=== PATIENT | female | born 1970 | race Caucasian/White ===

== ENCOUNTER 2017-11-01 06:14 | Day surgery (SDC) | payer OTHER, SELFPAY ==
[2017-11-01 07:01] VITALS: BP 118/73; PULSE 60; RESP 16; TEMP 36.6; O2SAT 100; BMI 22.7
[2017-11-01] MEDS: Cefazolin 2 GM in 0.9% Normal Saline 100 ML IV (08:28)
--- NOTE | 2017-11-01 08:41 | PCM.DC.URO ---
Discharge Diet: Light diet - advance as tolerated Discharge Activity: May not drive while taking narcotic pain medications. Return to work on:: 11/11/17 May shower in (days): 1 May resume sexual activity in: 6 weeks Call your doctor if your incision/area has: Continuous Slow Oozing, Sudden Increased Bleeding, Increased Pain/ Swelling, Increased Redness, Foul Smelling Discharge, Swelling at the incision site Call your doctor if you observe: Fever of 101 or Higher, Inability to urinate, Uncontrolled pain Suture Line Care: Avoid Pulling/Pushing, Avoid Pinching/Bending Instructions: Stress Urinary Incontinence: Having Midurethral Sling Surgery Allergies/Adverse Reactions: Allergies latex Allergy (Verified 10/24/17 15:22) Itching Medications to take at Discharge Amberen 2 tab PO DAILY 10/24/17 Cholecalciferol (Vitamin D3) [Vitamin D3] 5,000 unit PO DAILY 10/24/17 Cyanocobalamin (Vitamin B-12) [Vitamin B-12] 1,000 mcg PO DAILY 10/24/17 Meloxicam [Mobic] 15 mg PO DAILY 10/24/17 Vitamin B Complex 1 each PO DAILY 10/24/17 Ciprofloxacin [Cipro] 500 mg PO BID #10 tab 11/01/17 Hydrocodone Bitart/Apap 5-325 [[place] 5MG-325MG] 1 tab PO Q4H PRN PRN 5 Days #14 tab 11/01/17 The following prescriptions were given: Hydrocodone Bitart/Apap 5-325 [[place] 5MG-325MG] 1 tab PO Q4H PRN PRN 5 Days #14 tab PRN Reason: Pain Ciprofloxacin [Cipro] 500 mg PO BID #10 tab Primary Care Physician: Bernardino Acevedo DO [Primary Care Provider] - Please Follow Up With: Joaquin Mays MD When: November 14 at 2:15pm
--- NOTE | 2017-11-01 08:45 | DCINST_ITS ---
Discharge Diet: Light diet - advance as tolerated Discharge Activity: May not drive while taking narcotic pain medications. Return to work on:: 11/11/17 May shower in (days): 1 May resume sexual activity in: 6 weeks Call your doctor if your incision/area has: Continuous Slow Oozing, Sudden Increased Bleeding, Increased Pain/ Swelling, Increased Redness, Foul Smelling Discharge, Swelling at the incision site Call your doctor if you observe: Fever of 101 or Higher, Inability to urinate, Uncontrolled pain Suture Line Care: Avoid Pulling/Pushing, Avoid Pinching/Bending Instructions: Stress Urinary Incontinence: Having Midurethral Sling Surgery Allergies/Adverse Reactions: Allergies latex Allergy (Verified 10/24/17 15:22) Itching Medications to take at Discharge Amberen 2 tab PO DAILY 10/24/17 Cholecalciferol (Vitamin D3) [Vitamin D3] 5,000 unit PO DAILY 10/24/17 Cyanocobalamin (Vitamin B-12) [Vitamin B-12] 1,000 mcg PO DAILY 10/24/17 Meloxicam [Mobic] 15 mg PO DAILY 10/24/17 Vitamin B Complex 1 each PO DAILY 10/24/17 Ciprofloxacin [Cipro] 500 mg PO BID #10 tab 11/01/17 Hydrocodone Bitart/Apap 5-325 [[place] 5MG-325MG] 1 tab PO Q4H PRN PRN 5 Days #14 tab 11/01/17 The following prescriptions were given: Hydrocodone Bitart/Apap 5-325 [[place] 5MG-325MG] 1 tab PO Q4H PRN PRN 5 Days #14 tab PRN Reason: Pain Ciprofloxacin [Cipro] 500 mg PO BID #10 tab Primary Care Physician: Bernardino Acevedo DO [Primary Care Provider] - Please Follow Up With: Joaquin Mays MD When: November 14 at 2:15pm
[2017-11-01 09:30] VITALS: BP 116/60; BP 118/73; PULSE 76; RESP 16; TEMP 36.8; O2SAT 100
--- NOTE | 2017-11-01 09:30 | OP.PCM_ITS ---
Report of Operation Date of Procedure: 11/01/17 Pre-Operative Diagnosis: Stress incontinence Post-Operative Diagnosis: Same Surgery/Procedure Performed:: Cystoscopy and placement of a tension-free vaginal sling Description of Surgical Findings:: 47-year-old female was taken back to the operating room has a history of stress incontinence has to wear multiple pads during the daytime is fairly wet on a daily basis she does a lot of heavy lifting with her work because of this she wanted to have an anti-incontinence procedure. We talked about the options and working to proceed with placement of a tension-free vaginal sling with mesh she understands the risks with the procedure including risk of erosion, infection, failure to cure, development of urgency, development of urge incontinence., Bladder infections, chronic bladder infections after reviewing everything with the patient she signed a consent form please see my office notes for full details. 47-year-old female taken back to the operating room after smooth induction of general anesthesia she was placed supine on the table in dorsal lithotomy position the perineum vaginal area and urethra and vaginal area were prepped and draped in usual sterile fashion patient was in high lithotomy and Trendelenburg position I then placed the catheter into the bladder and infiltrated the mid urethra with lidocaine with epi 1 100. I then made an incision right in the midline underneath the urethra and then dissected a space on the right side of the urethra underneath the pubic bone on the left side of the urethra the pubic bone around the urethra itself and then after dissecting the space out then I went above marked out the midline of the pubic bone went 2- 1/2 cm the right 2-1/2 cm the left made a small incision infiltrated the skin with lidocaine with epi. I then drained the bladder I have passed the first trocar top down on the left side hugging the pubic bone and coming through the vaginal incision coming from the top suprapubic approach. Once the trocar was in place I looked inside the bladder distended the bladder completely and could not see any perforation or damage to the bladder. I then passed the sling on this side up but a snap at the end then went to the right side bladder was drained Sharif catheter was in place then passed the trocar from the right side top down again hugging the pubic bone and coming through the vaginal incision then looked back in the bladder and check the bladder distended bladder really well and there was no perforation of bladder injury I then grabbed the other end of the sling and pulled up first made sure that the sling was nice and flat there is no twisting or kinking then pulled up the sling up to the underneath the urethra I then used the Metzenbaum scissors heavy Melgra's to tension the sling on both sides put a catheter back in and after tensioning to the Melgar scissors I released the sling on both the right and left side I then filled the bladder up and did a Valsalva maneuver and she was still leaking very easily gushing with urine from the bladder so therefore a felt that the sling was not too tight or not tight enough and that it would not work for her so I then tension the sling a little bit more on the right side a little bit more than the left side still make sure he was not really guitar tight but made sure that the sling was laying down flat on the urethra and I filled the bladder back up again with 250 cc this time I pushed the bladder again and there was no leakage so looking at the sling and felt like the sling was loose below the urethra but tight enough to help with the incontinence there is no leakage we did a Valsalva maneuver cut the access length and the top I then closed the suprapubic incisions with subcuticular stitches I then closed the vaginal incision with interrupted 3-0 Vicryl. The bladder was drained no catheter was left in place and if the patient is able to urinate today she will go home with a catheter if she is not able to urinate shortly go home with a catheter for a few days. I did have the tension of the sling a little tighter than typical given the amount of leakage that he had for the initial tensioning will discuss with the family the slight risk of temporary retention given this tension. Type of Anesthesia:: General Drains: none. - Admit VTE Documentation VTE Present on Admission: No VTE Mechan Device Prophylaxis: SCD's VTE Pharm Prophylaxis ordered?: No Reason prophylaxis not ordered:: Treatment Not Indicated
[2017-11-01 09:45] VITALS: BP 118/73; BP 121/68; PULSE 58; RESP 16; O2SAT 100
[2017-11-01 09:55] VITALS: BP 118/73; BP 130/79; PULSE 58; RESP 16; TEMP 36.3; O2SAT 100
[2017-11-01 11:52] VITALS: BP 118/73
--- NOTE | 2017-11-01 11:52 | SUR.PHASEII ---
INSERTED 16FR GOODSON CATHETER. EMPTIED 1200 OUT OF GOODSON BAG. INSTRUCTED PT AND ON HOW TO EMPTY BAG AND HOW TO REMOVE CATHETER. DENIES OTHER QUESTIONS AT THIS TIME.
== END 2017-11-01 11:55 | disposition home or self-care (01) ==
LOC: SDC 06:16 → AC 06:16
PROVIDERS: Family Provider Family Medicine; PCP Family Medicine; Visit Provider Urology
PROC: 0TJB8ZZ Inspection of Bladder, Via Natural or Artificial Opening Endoscopic (ICD-10-PCS; CPT 57288; principal; 2017-11-01 08:20)
DX: N39.3 Stress incontinence (female) (male) (principal); Z79.899 Other long term (current) drug therapy; E55.9 Vitamin D deficiency, unspecified; Z87.891 Personal history of nicotine dependence
CPT/HCPCS: 57288; J7120; C1771

== ENCOUNTER 2017-11-05 01:00 | Emergency (ER) | payer OTHER, SELFPAY ==
[2017-11-05 01:00] VITALS: BP 151/93; PULSE 72; RESP 18; TEMP 36.9; O2SAT 100; BMI 24.4
[2017-11-05 01:26] VITALS: BP 145/80; PULSE 68; RESP 16; O2SAT 100
[2017-11-05 01:42] LABS: Bacteria 0 SEEN /hpf (None Seen); Mucous, Urine 0 SEEN /hpf (<or=2+); Red Blood Cells-Urine 0 SEEN /hpf (0-5); Squamous Epithelial Cells - UA 0 SEEN /hpf (5-10); White Blood Cells 0 SEEN /hpf (0-5)
[2017-11-05 01:44] LABS: Color, Urine Yellow (Yellow); Glucose, Dipstick Normal (Normal); Ketone-Dipstick Negative (Negative); Leukocyte Esterase-Dipstick Negative /ul (Negative); Nitrite-Dipstick Negative (Negative); Occult Blood-Urine Negative /ul (Negative); Protein-Dipstick Negative (Negative); Urine Bilirubin Dipstick Negative (Negative); Urine Clarity Clear (Clear); Urine Urobilinogen Normal (Normal)
--- NOTE | 2017-11-05 02:39 | ED.VISSUMM ---
- ER Visit Summary Date of Service: 11/05/17 Chief Complaint: Urinary retention History of Present Illness: The patient is a 47 F who is 3 days postop surgical pelvic sling placement who presents for inability to urinate. Patient was sent home with a Sharif catheter in place with instructions to self remove it earlier today. Patient removed it and was unable to urinate other than a mild trickle since removal. Patient is having suprapubic discomfort. She was instructed to come to the emergency department for evaluation. She is on ciprofloxacin for infection prophylaxis. She denies fever, abdominal pain, nausea or vomiting or other complaints. Physical Examination: Vital signs: afebrile, hemodynamically stable, no hypoxia on room air General: well nourished, well developed, in no distress Skin: warm, dry, no rash, no pallor HEENT: normocephalic and atraumatic; PERRL, EOMI, moist mucous membranes Cardiovascular: regular rate and rhythm without murmurs, no peripheral edema, 2+ pulses all distal extremities Respiratory: No increased work of breathing, lungs are clear to auscultation bilaterally, no rales, rhonchi or wheezing Abdominal: Abdomen is soft, nontender with normoactive bowel sounds, no guarding or rebound, no masses MSK: Moves all extremities, no deformities, normal strength Neuro: Awake and alert, oriented ?4. No facial droop, sensation and motor function intact and symmetric Test Results: Abnormal Lab Results 11/05/17 01:35 Urine Color Yellow Urine Clarity Clear Urine pH 7.0 Ur Specific [place] 1.010 Urine Protein Negative Urine Glucose (UA) Normal Urine Ketones Negative Urine Occult Blood Negative Urine Nitrite Negative Urine Bilirubin Negative Urine Urobilinogen Normal Ur Leukocyte Esterase Negative Urine RBC 0 SEEN Urine WBC 0 SEEN Ur Squamous Epith Cells 0 SEEN Urine Bacteria 0 SEEN Urine Mucus 0 SEEN Emergency Department Course and Treatment: At time of physical exam, patient had already been straight cathed and had removal of 1400 cc of urine from her bladder. Suprapubic region was soft and nontender at evaluation. Sharif catheter was placed given that patient is having acute urinary retention after her surgery. Urinalysis showed no evidence of infection. She will continue her antibiotic as prescribed by her doctor. She will call today to arrange a follow-up appointment with her urologist. She is discharged home with her symptoms improved. Treatment Plan: [] Disposition: [] Impression: Acute urinary retention This note was generated with [employer] dictation software. It may contain incorrect words, spelling, and punctuation that were not noted in review of the chart prior to signing ED Disposition - Plan for ED Patient: Disposition: Home or Assisted Living Chief Complaint: Sharif C/O Instructions: Discharge Instructions: Caring for Your Leg Bag, ED Catheter Care Sharif, ED Retention Urinary Female Referrals: Bernardino Acevedo DO [Primary Care Provider] - Joaquin Mays MD [STAFF PHYSICIAN] - 1 Day for another exam Additional Instructions: Please call Dr. Mays's office today to set up an appointment for reevaluation and possible removal of the Sharif catheter. Return to the emergency department immediately if you have any complications related to your urinary catheter and are unable to be seen by your urologist.
[2017-11-05 03:01] VITALS: BP 127/74; PULSE 82; RESP 18; O2SAT 100
== END 2017-11-05 03:02 | disposition home or self-care (01) ==
PROVIDERS: Emergency Provider Emergency Medicine; Family Provider Family Medicine; PCP Family Medicine
DX: R33.9 Retention of urine, unspecified (principal); R35.0 Frequency of micturition; R39.15 Urgency of urination; F17.290 Nicotine dependence, other tobacco product, uncomplicated; Z98.890 Other specified postprocedural states; Z79.899 Other long term (current) drug therapy
CPT/HCPCS: 51702; 81001; 99283

== ENCOUNTER 2017-11-21 17:00 | Outpatient (RCR) | payer OTHER, SELFPAY ==
--- NOTE | 2017-10-30 10:26 | HP.OTEVAL_ITS ---
Patient's Visit Information NALINI CAPELLAN is a 47 year old F, referred to Occupational Therapy by Christopher Yeh MD, with a diagnosis of Sprain of L thumb. Date of Evaluation: 10/29/17 Occupational Therapist: Rosalba Vivar - Subjective Subjective: Pt seen for initial occupational therapy evaluation for diagnosis of L thumb sprain. Pt states increased pain and arthritis of L thumb region. Pt states she has had this pain for 2 yrs. Pt has tried cortisone shots and meloxicam. She is wearing a thumb spica splint for at work. 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 Pt states independent with self care tasks, but does have difficulty with cutting food and repetitive use of her L thumb MP and CMC joint. Pt is right hand dominent. Pt had last cortisone shot beginning for 2017 or August. - Pain Left Hand 0 Pain Intensity Range: 0, 7 - Objective Objective/Observation: Pt demo increased pain with movement of L thumb MP and CMC joint. 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 - Edema Other: No edema - Sensation Sensation Comments: Pt states no numbness or tingling. - DASH-Disabilities of Arm, Shoulder& Hand DASH Sum: 42 - Goals Goal:: Pt will progress w/ L hand unmanned aircraft systems roboticist strength by 15# and L tripod pinch by 4# to increase her independence with cutting food and BADLs. Goal:: Pt will demo no pain greater than 1/10 of L thumb by d/c from OT with use of modalities as needed. Goal:: Pt will be educated on joint protection and energy conservation techniques for L thumb with good understanding and demo 100%x. Goal:: Pt will be educated on L thumb joint stability exercises HEP with good understanding and demo 100%x. - Rehabilitation General Assessment: Pt states arthritis of L thumb over past 2 years it has bothered her and continues to get worse. Pt demo increased pain of L thumb with repetitive movement and pinching activities with decreased strength of L hand. Pt would benefit from occupational therapy services to increase L hand strength , decrease pain and educate on joint protection, energy conservation and HEP to increase pts quality of life. Rehabilitation Potential: Good - Anticipated Interventions Anticipated Interventions: A/AAROM/PROM, Strengthening, Massage, Modalities, Orthoses, Joint Protection/Energy Conservation, Ergonomic Education, ADL Training, Home Program - Visit Plan Frequency: 1-2x /Week Duration: 4 Weeks General Plan: Decrease pain of L thumb, increase unmanned aircraft systems roboticist strength and pinch strength L hand, educate on joint stability HEP, joint protection and energy conservation techniques. TEXT: Thank you for the opportunity to evaluate your patient. For Medicare and Medicare HMO plans, please review the plan of care and approve it. It will need to be FAXED BACK to us at [phone] for Medicare purposes. Please let me know if there are questions or concerns regarding this plan of care. Physician Signature: Date:
--- NOTE | 2017-11-21 17:44 | HP.OTDCSUM ---
HP - OT D/C Summary It has been my pleasure to treat NALINI CAPELLAN under orders from Christopher Yeh MD, for the diagnosis of Sprain of L thumb for a total of 7 visit(s). Please see the following information for a summary of their discharge status. 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 L hand cnc machine operator strength remained 40#, tripod pinch L hand 6#. Goal:: Pt will demo no pain greater than 1/10 of L thumb by d/c from OT with use of modalities as needed. Pt states no pain in L thumb 0/10 at d/c. States occassionally will have pain with movement. Goal:: Pt will be educated on joint protection and energy conservation techniques for L thumb with good understanding and demo 100%x. Pt demo good understanding of joint protection and energy conservation techniques w/ 100% demo and understanding. Goal:: Pt will be educated on L thumb joint stability exercises HEP with good understanding and demo 100%x. Pt demo good understanding and demo of HEP with 100% accuracy - Plan Plan: d/c from OT this date. - D/C Information Discharge Comments: Pt has been educated on L hand HEP, joint protection and energy conservation techniques with good understanding and demo 100% accuracy. Pt wearing thumb spica splint at work. Educated on using heat for comfort to L hand. 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 Pt states 0/10 pain L thumb. Pt no longer requires skilled OT services and has been educated on on L hand HEP, joint protection and energy conservation techniques with good understanding. D/C OT services. If there are questions or concerns regarding this patient's occupational therapy, please fell free to call me at [phone]. Thank you for the referral of this patient. Sincerely, Rosalba Vivar
== END 2017-11-21 19:00 | disposition home or self-care (01) ==
LOC: OT 17:00
PROVIDERS: Family Provider Family Medicine; PCP Family Medicine; Visit Provider Specialist
DX: S63.682D Other sprain of left thumb, subsequent encounter (principal)
CPT/HCPCS: 97035; 97110; 97140; 97165; 97530; J2405

== ENCOUNTER 2020-01-23 19:00 | Emergency (ER) | payer OTHER, SELFPAY ==
[2020-01-23 19:01] VITALS: BP 126/90; PULSE 73; RESP 18; TEMP 36.7; O2SAT 98; BMI 23.4
--- NOTE | 2020-01-23 19:18 | ED.DCSUM_ITS ---
History of Present Illness Chief Complaint: Bite Informant: Patient Narrative: -year-old female presents with her daughter with concern for dog bite. States that she was bit on her left hand. Patient had surgery on this hand to repair a tendinous injury 2 months ago. States that she is concerned because there is a laceration there. Has no significant pain. Patient has been drinking alcohol today. Past Medical History - Allergies and Home Meds Allergies/Adverse Reactions: Allergies latex Allergy (Verified 01/23/20 19:03) Itching Primary Care Physician: Kennedi Ballesteros DO [Primary Care Provider] - Past Medical History: None Surgical History: - - ortho hand Lives: Spouse/ Significant Other Smoking Status: Former smoker Alcohol: Occasional Drugs: None Review of Systems General: Denies: Chills, Fever, Sweats Eyes: Denies: Visual changes - bilaterally, Diplopia ENT: Denies: Rhinorrhea, Sore throat Cardiovascular: Denies: Chest pain, Palpitations Respiratory: Denies: Dyspnea, Cough, Dyspnea on exertion Gastrointestinal: Denies: Abdominal pain, Nausea, Vomiting, Diarrhea, Melena, Hematochezia Genitourinary: Denies: Dysuria, Hematuria, Frequency Musculoskeletal: Denies: Back pain, Extremity Pain Skin: Reports: Wounds. Denies: Rash Neurological: Denies: Headache, Weakness, Numbness Physical Exam Vital Signs/Narrative: Vital Signs Temp Pulse Resp BP Pulse Ox 01/23/20 19:01 98.1 F 73 18 126/90 H 98 Inital Vital Signs reviewed: Yes General: Well nourished, Well developed, No Acute Distress Head: Normocephalic, Atraumatic Eyes: Perrl, EOMI ENT: Moist mucous membranes, No rhinorrhea Neck: Supple, Nontender Cardiovascular: Regular rate, Regular rhythm, No murmurs Respiratory: No distress, CTA bilaterally, Chest nontender Abdomen: Soft, Nontender, Nondistended, Normal bowel sounds Back: Nontender, Normal Inspection Extremities: Nontender, No edema Skin: Normal color, No rash, - - macerated wound to the left hand just lateral to the thenar emenince. approximately 3 cm in length. Neurological: Alert, Oriented x3, Cranial nerves II-XII grossly intact, Normal Strength, Normal Sensation Psychological: Normal affect, Normal Mood Diagnostic/Tx/Re-eval Clinical Impression(s) from Imaging Studies Hand X-Ray 01/23/20 19:20 IMPRESSION: Soft tissue injury to the wrist. Deformity of the carpometacarpal joint and first metacarpal as described above. Electronically Signed: Rcik Baez MD at 19:42 EDT Tel , Service support , - Medical Decision Making Appears well and nontoxic. Vital signs within normal limits. Patient has a macerated approximately 3 to 4 cm laceration to the left hand. X-ray negative. Postsurgical changes. Patient had the wound loosely approximated and will be placed on Augmentin for the next 10 days. Patient has follow-up appointment with her hand surgeon on Saturday. Patient was also given tetanus. Asked return for new or worsening symptoms. Discharged home in stable condition. ED Disposition - Plan for ED Patient: Disposition: Psychiatric Hospital or Unit Diagnosis: Laceration Prescriptions: Amoxicillin/Potassium Clav [Augmentin 875-125 Tablet] 1 ea PO BID #20 tab Transmission Status: Pending to [facility]/pharmacy #[id number] Referrals: Kennedi Ballesteros DO [Primary Care Provider] -
--- NOTE | 2020-01-23 19:20 | RAD_ITS ---
STUDY: X-RAY - LEFT HAND REASON FOR EXAM: Female, 49 years old. Dog bite to left hand near thumb, history of previous surgery to the thumb/wrist area TECHNIQUE: 3 view(s) of the hand. COMPARISON: None. FINDINGS: Normal radiocarpal articulation. Normal distal radioulnar joint. There is absence of the trapezium. There is deformity of the base of the first metacarpal likely due to previous surgery with cystic changes at the base of the first metacarpal. Soft tissue calcifications are seen. The carpal articulations are otherwise unremarkable. Deformity of the base of the second metacarpal is also seen. Normal second through fifth carpometacarpal joints. Normal metacarpi. Normal metacarpophalangeal joint of the thumb. Normal interphalangeal joint of the thumb. Normal proximal and distal phalanges of the thumb. Normal metacarpophalangeal joints of the second through fifth fingers. Minimal degenerative arthrosis of the distal interphalangeal joint of the fourth finger. Normal phalanges of the second through fifth fingers. There is a soft tissue defect adjacent to the base of the first metacarpal. RAD/Hand Min 3 Views IMPRESSION: Soft tissue injury to the wrist. Deformity of the carpometacarpal joint and first metacarpal as described above. Electronically Signed: Rick Baez MD at 19:42 EDT Tel , Service support ,
[2020-01-23] MEDS: Diphth,Pertuss(Acell),Tet Vac 0.5 ML Vial IM (19:37)
[2020-01-23] MEDS: Amox/Clavulanate 875 MG Tablet PO (21:08)
[2020-01-23 21:18] VITALS: BP 122/78; BP 124/78; PULSE 74; RESP 16; O2SAT 98
== END 2020-01-23 21:23 | disposition home or self-care (01) ==
PROVIDERS: Emergency Provider Emergency Medicine; PCP Internal Medicine
DX: S61.412A Laceration without foreign body of left hand, initial encounter (principal); W54.0XXA Bitten by dog, initial encounter; Y93.9 Activity, unspecified; Y92.9 Unspecified place or not applicable; Y99.9 Unspecified external cause status; Z23 Encounter for immunization; Z91.040 Latex allergy status; Z87.891 Personal history of nicotine dependence
CPT/HCPCS: 12002; 73130; 90715; 99283

== ENCOUNTER 2020-02-18 10:00 | Outpatient (RCR) | payer OTHER, SELFPAY ==
--- NOTE | 2019-12-25 13:17 | HP.OTEVAL_ITS ---
Patient's Visit Information NALINI CAPELLAN is a 49 year old F, referred to Occupational Therapy by Ian Salzaar PA-C, with a diagnosis of left unilateral primary osteoarthritis. Date of Evaluation: 12/25/19 Occupational Therapist: Denisha Morales, JESSICAR/Temo, CHT - Subjective This 49 year old female was seen for OT eval with dx. of unilateral primary osteoarthritis. pt states her thumb has been giving her problems for about 5 years. She had multiple cortisone shots but did not help. Pt under went sx December 01, 2019 pt is currently 3 weeks and 3 days s/p pt in need of custom orthosis and ed. on CMC arthroplasty protocol. PT demonstrates need for skilled OT services 1-2xweek for 6-8 weeks to ensure pt is following surgeon specific protocol, challenged appropriately to increase ROM and strength to return pt to PLOF with ADLs and IADLs. Today therapist brenona. custom thumb spica for left CMC arthroplasty- therapist ed. pt on use and care pt demo understanding and agree to POC. - Pain left wrist/hand 2 Pain Intensity Range: 0, 1, 5 - ROM Wrist: right 80/70 left 25/15 CMC: right 15 left 5 MP: right 70 left 15 IP: right 80 left 10 Opposition: 3 ROM Comments: pt demo good digit ROM - Strength Insole Tape Stitcher Uco: right 60# left NT Lateral Pinch: right 14# left NT Tripod Pinch: right 12# left NT - Sensation Thumb: right/left 2.83 Index: right/left 2.83 Middle: right/left 2.83 Ring: right/left 2.83 Little: right/left 2.83 - Quick DASH-Disab of Arm,Shoulder& Hand Quick DASH Score: 70.0000 - Goals Goal:100% adherence to protocol: Yes Comment: cmc arthroplasty protocol Goal:Daily scar massage when approriate: Yes Goal:ROM equal to unaffected hand: Yes Goal:Insole Tape Stitcher Uco/Pinch strength at least 75% of unaffected hand: Yes Goal:No pain with affected hand use: Yes Goal:Full use of affected hand in daily activities including: Yes Goal:Decrease scar hypersensitivity: Yes - Rehabilitation General Assessment: Pt is s/p 3 weeks 3 days from left CMC arthroplasty pt demo with limited ROM of left wrist, thumb following sx. pt reports decrease ind. with all ADLs and IADLs at this time. Pt would benefit from skilled OT services Rehabilitation Potential: Good - Anticipated Interventions A/AAROM/PROM, Strengthening, Edema Control, Desensitization, Modalities, Orthoses, Joint Protection/Energy Conservation - Visit Plan Frequency: 1-2x /Week Duration: 2 Months General Plan: CMC arthroplasty. Week 2: exercise- AROM performed for digits and thumb IP joint only- initiate scar mtg. Week 4: Begin AROM exercises for wrist thumb CMC- joint- cont. scar mtg/edema control (modalities as indicated for pain and edema. Week 6: splint D/C and issue comfort cool fitted splint if needed- discontinue splint by 8 weeks post-operative except may wear during heavy activates pm. Exercise: start gentle strengthening(thera-putty), progress as tolerated. Progress to wrist strengthening and heavier prehension tasks at 8 weeks post-operative. Avoid forceful extension of thumb. Expectations: Most patients are treated with a Home Program and checked after each MD visit for program progression 2x weekly for 4-6 weeks for symptomatic patients or those returning to heavier work demands. 2 months to resume normal activities, 3 months for strenuous. 3-6 months to reach optimum results. 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 generally, gain 70% of strength and motion of unoperated hand. TEXT: Thank you for the opportunity to evaluate your patient. For Medicare and Medicare HMO plans, please review the plan of care and approve it. It will need to be FAXED BACK to us at [phone] for Medicare purposes. Please let me know if there are questions or concerns regarding this plan of care. Physician Signature: Date:
--- NOTE | 2020-01-13 11:46 | HP.OTEVAL_ITS ---
Patient's Visit Information NALINI CAPELLAN is a 49 year old F, referred to Occupational Therapy by Ian Salazar PA-C, with a diagnosis of left unilateral primary osteoarthritis. Date of Evaluation: 12/25/19 Occupational Therapist: Denisha Morales, JESSICAR/Temo, CHT - Subjective This 49 year old female was seen for OT eval with dx. of unilateral primary osteoarthritis. pt states her thumb has been giving her problems for about 5 years. She had multiple cortisone shots but did not help. Pt under went sx December 01, 2019 pt is currently 3 weeks and 3 days s/p pt in need of custom orthosis and ed. on CMC arthroplasty protocol. PT demonstrates need for skilled OT services 1-2xweek for 6-8 weeks to ensure pt is following surgeon specific protocol, challenged appropriately to increase ROM and strength to return pt to PLOF with ADLs and IADLs. Today therapist breonna. custom thumb spica for left CMC arthroplasty- therapist ed. pt on use and care pt demo understanding and agree to POC. - Pain left wrist/hand 0 Pain Intensity Range: 0, 1, 5 - ROM Wrist: right 80/70 left 25/15 CMC: right 15 left 5 MP: right 70 left 15 IP: right 80 left 10 Opposition: 3 ROM Comments: pt demo good digit ROM - Strength Nutrition Worker: right 60# left NT Lateral Pinch: right 14# left NT Tripod Pinch: right 12# left NT - Sensation Thumb: right/left 2.83 Index: right/left 2.83 Middle: right/left 2.83 Ring: right/left 2.83 Little: right/left 2.83 - Quick DASH-Disab of Arm,Shoulder& Hand Quick DASH Score: 70.0000 - Goals Goal:100% adherence to protocol: Yes Comment: cmc arthroplasty protocol Goal:Daily scar massage when approriate: Yes Goal:ROM equal to unaffected hand: Yes Goal:Nutrition Worker/Pinch strength at least 75% of unaffected hand: Yes Goal:No pain with affected hand use: Yes Goal:Full use of affected hand in daily activities including: Yes Goal:Decrease scar hypersensitivity: Yes - Rehabilitation General Assessment: Pt is s/p 3 weeks 3 days from left CMC arthroplasty pt demo with limited ROM of left wrist, thumb following sx. pt reports decrease ind. with all ADLs and IADLs at this time. Pt would benefit from skilled OT services 1-2 x week for 8weeks to return pt to OF. Today therapsit broenna. custom orthosis and ed. on use and care. therapist ed. pt on edema control, scar mtg and wrist AROM supported MP and IP ROM . pt demo understanding and agree to POC. Rehabilitation Potential: Good - Anticipated Interventions A/AAROM/PROM, Strengthening, Edema Control, Desensitization, Modalities, Orthoses, Joint Protection/Energy Conservation - Visit Plan Frequency: 1-2x /Week Duration: 2 Months General Plan: CMC arthroplasty. Week 2: exercise- AROM performed for digits and thumb IP joint only- initiate scar mtg. Week 4: Begin AROM exercises for wrist thumb CMC- joint- cont. scar mtg/edema control (modalities as indicated for pain and edema. Week 6: splint D/C and issue comfort cool fitted splint if needed- discontinue splint by 8 weeks post-operative except may wear during heavy activates pm. Exercise: start gentle strengthening(thera-putty), progress as to lerated. Progress to wrist strengthening and heavier prehension tasks at 8 weeks post-operative. Avoid forceful extension of thumb. Expectations: Most patients are treated with a Home Program and checked after each MD visit for program progression 2x weekly for 4-6 weeks for symptomatic patients or those returning to heavier work demands. 2 months to resume normal activities, 3 months for strenuous. 3-6 months to reach optimum results. slight decrease in pinch and lead electrical engineer strength. generally, gain 70% of strength and motion of unoperated hand. TEXT: Thank you for the opportunity to evaluate your patient. For Medicare and Medicare HMO plans, please review the plan of care and approve it. It will need to be FAXED BACK to us at [phone] for Medicare purposes. Please let me know if there are questions or concerns regarding this plan of care. Physician Signature: Date:
--- NOTE | 2020-02-18 10:27 | HP.OTDCSUM_ITS ---
It has been my pleasure to treat NALINI CAPELLAN under orders from Ian Salazar PA-C, for the diagnosis of left unilateral primary osteoarthritis for a total of 10 visit(s). Please see the following information for a summary of their discharge status. % Improvement: 95 Objective/Function: left cmc 20 increase from 5*. left MP 40 a increase from 15*. left IP 70 a increase 10*. pt demo scar hypertrophic over incision from dog bite but using elastomer for scar. 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 left wrist 70/65 a increase from 25/15. pt demo functional ROM and strength. Pt reports ind. with ADls and IADLS. pt will have pain with initial pinch of an object but when action is gone pain goes away. pt to cont with scar mtg, thumb stabilization ex. pt demo understanding of HEP Patient Goals: Regain Mobility, Decrease Pain, Return to Work, Improve Fine Motor Skills, Use Hand/Wrist/Arm Normally Again, Be More Independent in ADLS Goal:100% adherence to protocol: Yes Goal:Daily scar massage when approriate: Yes Goal:ROM equal to unaffected hand: Yes Goal:Photoresist Contact Printer/Pinch strength at least 75% of unaffected hand: Yes Goal:No pain with affected hand use: Yes Goal:Full use of affected hand in daily activities including: Yes Goal:Decrease scar hypersensitivity: Yes Plan: D/C Discharge Comments: Pt was seen for 10 OT visits following a left CMC arthroplasty. pt made great gains with ROM and strength even with set back of the dog bite. Please see above for details on pts ROM and strength. pt reports ind. with ADls and IADLs. pt has met goals in OT and is d/c at this time. If there are questions or concerns regarding this patient's occupational therapy, please fell free to call me at [phone]. Thank you for the referral of this patient. Sincerely, Denisha Morales, OTR/L, CHT
== END 2020-02-18 19:00 | disposition home or self-care (01) ==
LOC: OT 10:00
PROVIDERS: PCP Family Medicine; Referring Provider Physician Assistant Surgical; Visit Provider Physician Assistant Surgical
DX: M18.12 Unilateral primary osteoarthritis of first carpometacarpal joint, left hand (principal)
CPT/HCPCS: 97035; 97110; 97140; 97166; 97530; 97760